=== PATIENT | female | born 1960 | race Caucasian/White ===

== ENCOUNTER 2016-06-08 21:32 | Outpatient (CLI) | payer MEDICAID | END 2016-06-08 21:33 | disposition home or self-care (01) | DX: G47.33 Obstructive sleep apnea (adult) (pediatric) (principal) ==

== ENCOUNTER 2016-07-02 09:10 | Outpatient (CLI) | payer MEDICAID | END 2016-07-02 09:11 | disposition home or self-care (01) | DX: G47.33 Obstructive sleep apnea (adult) (pediatric) (principal) ==

== ENCOUNTER 2016-07-12 09:53 | Outpatient (CLI) | payer MEDICAID | END 2016-07-12 09:54 | disposition home or self-care (01) | DX: E03.9 Hypothyroidism, unspecified (principal); E78.5 Hyperlipidemia, unspecified; I10 Essential (primary) hypertension ==

== ENCOUNTER 2016-08-08 11:00 | Outpatient (CLI) | payer MEDICAID | END 2016-08-08 11:30 | disposition home or self-care (01) | DX: R42 Dizziness and giddiness (principal); R07.89 Other chest pain ==

== ENCOUNTER 2016-08-12 10:36 | Outpatient (CLI) | payer MEDICAID | END 2016-08-12 10:37 | disposition home or self-care (01) | DX: R07.89 Other chest pain (principal); R91.8 Other nonspecific abnormal finding of lung field ==

== ENCOUNTER 2016-08-14 09:41 | Outpatient (CLI) | payer MEDICAID | END 2016-08-14 09:42 | disposition home or self-care (01) | DX: G47.33 Obstructive sleep apnea (adult) (pediatric) (principal) ==

== ENCOUNTER 2016-12-05 19:59 | Outpatient (CLI) | payer MEDICAID | END 2016-12-05 20:00 | disposition critical access hospital (66) | LOC: EMS 19:59 | PROVIDERS: ATTEND Surgery | DX: R07.9 Chest pain, unspecified (principal); R11.0 Nausea | CPT/HCPCS: A0425; A0427 ==

== ENCOUNTER 2016-12-05 20:20 | Emergency (ER) | payer MEDICAID ==
--- NOTE | 2016-12-05 20:45 | ED Physician Documentation ---
PD HPI CHEST PAIN - Stated complaint Stated Complaint: CP/NAUSEA - Chief complaint Chief Complaint: Cardiac - History obtained from History obtained from: Patient - History of Present Illness Timing - onset: Today Timing - onset during: Light activity Timing - details: Abrupt onset, Intermittant Pain level max: 3 Pain level now: 0 Quality: Pressure Location: Substernal, Left chest Radiation: No: Jaw, Neck, Back, Abdominal, Left upper extremity, Right upper extremity Associated symptoms: Nausea, Palpitations Similar symptoms before: Has not had sx before Recently seen: Not recently seen Review of Systems Constitutional: reports: Reviewed and negative Cardiac: reports: Chest pain / pressure, Palpitations. denies: Pedal edema Respiratory: reports: Reviewed and negative GI: reports: Nausea PD PAST MEDICAL HISTORY - Past Medical History Past Medical History: Yes Cardiovascular: Hypertension, High cholesterol, Other Respiratory: Sleep apnea Endocrine/Autoimmune: Other GI: Hepatitis Other Past Medical History: patient states "irregular heart beat" - Past Surgical History Past Surgical History: Yes - Present Medications Home Medications: Ambulatory Orders Medication Instructions Recorded Confirmed Levothyroxine Sodium [Levoxyl] 50 mcg PO DAILY 12/05/16 12/05/16 Lisinopril 10 mg PO DAILY 12/05/16 12/05/16 Pravastatin [Pravachol] 40 mg PO DAILY 12/05/16 12/05/16 Venlafaxine HCl [Effexor Xr] 150 mg PO DAILY 12/05/16 12/05/16 cloNIDine [Catapres] 0.1 mg PO BID 12/05/16 12/05/16 - Allergies Allergies/Adverse Reactions: Allergies Allergy/AdvReac Type Severity Reaction Status Date / Time No Known Drug Allergies Allergy Verified 12/05/16 20:26 - Social History Does the pt smoke?: No Smoking Status: Former smoker Does the pt drink ETOH?: No Does the pt have substance abuse?: No Substance Use and Type: Meth, Cocaine/Crack - Immunizations Immunizations are current?: Yes - POLST Patient has POLST: No PD ED PE NORMAL - Vitals Vital signs reviewed: Yes - General General: Alert and oriented X 3, No acute distress, Well developed/nourished - HEENT HEENT: Moist mucous membranes - Cardiac Cardiac: RRR, No murmur - Respiratory Respiratory: No respiratory distress, Clear bilaterally - Abdomen Abdomen: Soft, Non tender, Non distended - Derm Derm: Normal color, Warm and dry, No rash - Extremities Extremities: No edema Results - Vitals Vitals: Oxygen O2 Source Room air - EKG (time done) No standard instances Rate: Rate (enter#) (60) Rhythm: NSR [place]: Normal Intervals: Normal [place] QRS: Normal Ischemia: Normal ST segments - Labs Labs: Laboratory Tests 12/05/16 12/05/16 12/05/16 20:53 20:53 20:53 WBC 8.6 RBC 4.46 Hgb 14.2 Hct 40.0 MCV 89.8 MCH 31.7 H MCHC 35.3 RDW 13.2 Plt Count 266 MPV 7.4 L Neut # 4.1 Lymph # 3.6 H [place] # 0.6 Eos # 0.2 Baso # 0.0 Absolute Nucleated RBC 0.00 Nucleated RBCs 0.0 Sodium 137 Potassium 3.9 Chloride 103 Carbon Dioxide 24 Anion Gap 10.0 BUN 20 Creatinine 0.8 Estimated GFR (MDRD) 74 L Glucose 217 H Calcium 9.5 Troponin I < 0.04 - Rads (name of study) chest xray Radiology: Prelim report reviewed, See rad report PD MEDICAL DECISION MAKING - ED course Complexity details: reviewed results, re-evaluated patient, considered differential, d/w patient Departure - Departure Disposition: 01 Home, Self Care Clinical Impression: Chest pain, Hiatal hernia, Hyperglycemia, Hypertension Condition: Good Instructions: Hiatal Hernia, ED Chest Pain Atypical Unkn Cause, ED HTN Established, ED Hyperglycemia New Susp Diabetes Comments: Follow up with your primary care physician. Your blood sugar was high tonight, but this does not need immediate treatment ( at this time in the emergency department). You should discuss this with your doctor, as they might recommend starting medication to control your blood sugar long-term. Similarly, your blood pressure was high tonight but not to an extent that required treatment in the emergency department. You should also discuss this with your doctor; they will recheck your blood pressure, and they might alter your blood pressure medication(s). You should take an acid-blocking medication, as you have a hiatal hernia and your chest discomfort might be associated with (due to) this finding. A medication such as Prilosec or Nexium ( [id number]) can be taken once per day for two weeks as a trial to see if it helps with symptoms. Lastly, the chest discomfort is a concerning symptom. Although your tests tonight are reassuring, talk to your doctor about this symptoms; they might recommend further testing. Please return to the emergency department if you feel worse in any way. Discharge Date/Time: 12/05/16 23:37
[2016-12-05 20:59] LABS: BASOPHILS % (AUTO) 0.5 %; EOSINOPHILS # (AUTO) 0.2 10^3/uL (0.0-0.7); EOSINOPHILS % (AUTO) 1.9 %; HGB - HEMOGLOBIN 14.2 g/dL (12.0-16.0); LYMPHOCYTES # (AUTO) 3.6 10^3/uL (1.5-3.5); LYMPHOCYTES % (AUTO) 42.2 %; MEAN CORPUSCULAR HEMOGLOBIN 31.7 pg (27.0-31.0); MEAN CORPUSCULAR HGB CONC 35.3 g/dL (32.0-36.0); MEAN CORPUSCULAR VOLUME 89.8 fL (81.0-99.0); MEAN PLATELET VOLUME 7.4 fL (7.9-10.8); MONOCYTES # (AUTO) 0.6 10^3/uL (0.0-1.0); MONOCYTES % (AUTO) 7.5 %; NEUTROPHILS # (AUTO) 4.1 10^3/uL (1.5-6.6); NEUTROPHILS % (AUTO) 47.9 %; RED BLOOD COUNT 4.46 10^6/uL (4.20-5.40); RED CELL DISTRIBUTION WIDTH 13.2 % (12.0-15.0); UNCORRECTED WHITE BLOOD COUNT 8.6 x10^3/uL; WHITE BLOOD COUNT 8.6 x10^3/uL (4.8-10.8)
[2016-12-05 21:08] LABS: CALCIUM 9.5 mg/dL (8.5-10.3); CREATININE 0.8 mg/dL (0.4-1.0); POTASSIUM 3.9 mmol/L (3.5-5.0)
[2016-12-05] MEDS ORDERED: ACETAMINOPHEN 325 MG TABLET PO STA (21:35)
[2016-12-05] MEDS ORDERED: ACETAMINOPHEN 325 MG TABLET PO ONE (21:39)
--- NOTE | 2016-12-05 21:46 | XRAY Preliminary Report ---
Exam: XR Chest 2 View PA/LAT IMPRESSION: 1. No acute pulmonary process. 2. Small to moderate hiatal hernia. [facility] SITE ID: [id number]
--- NOTE | 2016-12-05 22:32 | XRAY Report ---
EXAM: CHEST RADIOGRAPHY EXAM DATE: 12/05/2016 09:38 PM. CLINICAL HISTORY: Chest pain. COMPARISON: 08/12/2016. TECHNIQUE: 2 views. FINDINGS: Lungs/Pleura: No focal opacities evident. No pleural effusion. No pneumothorax. Lungs are hyperinflat ed. Mediastinum: Heart and mediastinal contours are unremarkable. Other: Moderate hiatal hernia. Postoperative changes are noted in the lower lumbar spine. EKG leads o verlie the chest. IMPRESSION: 1. No acute pulmonary process. 2. Small to moderate hiatal hernia. [facility] Referring Provider Line: [phone] SITE ID: [id number]
[2016-12-05 23:25] VITALS: BP 182/72
== END 2016-12-05 23:37 | disposition home or self-care (01) ==
LOC: EDUNIT# → ED 20:20
DX: R07.9 Chest pain, unspecified (principal); K44.9 Diaphragmatic hernia without obstruction or gangrene; R73.9 Hyperglycemia, unspecified; I10 Essential (primary) hypertension; K75.9 Inflammatory liver disease, unspecified; Z87.891 Personal history of nicotine dependence
CPT/HCPCS: 36415; 71020; 80048; 84484; 85025; 93005; 99284; A9270

== ENCOUNTER 2017-02-24 09:34 | Outpatient (CLI) | payer MEDICAID ==
[2017-02-24 13:33] LABS: BILIRUBIN,DIRECT 0.1 mg/dL (0.1-0.5); BILIRUBIN,TOTAL 0.9 mg/dL (0.2-1.0); CHOL/HDL RATIO 5.5 (<4.4); CHOLESTEROL 226 mg/dL; HDL CHOLESTEROL 41 mg/dL; LDL/HDL RATIO 3.4 (<4.4); MAGNESIUM 2.1 mg/dL (1.7-2.8); TOTAL PROTEIN 7.7 g/dL (6.7-8.2); TRIGLYCERIDES 223 mg/dL; VLDL CHOLESTEROL 45 mg/dL
== END 2017-02-24 09:35 | disposition home or self-care (01) ==
LOC: LAB.N 09:34
PROVIDERS: ATTEND Internal Medicine Cardiovascular Disease
DX: R06.02 Shortness of breath (principal); I10 Essential (primary) hypertension; R00.2 Palpitations; R07.9 Chest pain, unspecified; E78.00 Pure hypercholesterolemia, unspecified; G47.33 Obstructive sleep apnea (adult) (pediatric); Z86.19 Personal history of other infectious and parasitic diseases; R00.1 Bradycardia, unspecified
CPT/HCPCS: 36415; 80061; 80076; 83735; 84443

== ENCOUNTER 2017-04-14 10:26 | Outpatient (CLI) | payer MEDICAID ==
[2017-04-14 13:20] LABS: HEMOGLOBIN A1C 0.61 g/dL
== END 2017-04-14 10:27 | disposition home or self-care (01) ==
LOC: LAB.N 10:26
PROVIDERS: ATTEND Nurse Practitioner Gerontology
DX: E11.9 Type 2 diabetes mellitus without complications (principal)
CPT/HCPCS: 36415; 83036

== ENCOUNTER 2017-06-25 11:30 | Outpatient (CLI) | payer MEDICAID | END 2017-06-25 11:45 | disposition home or self-care (01) | LOC: RT.N 11:30 | PROVIDERS: ATTEND Family Medicine | DX: J06.9 Acute upper respiratory infection, unspecified (principal); F41.9 Anxiety disorder, unspecified | CPT/HCPCS: 93005 ==

== ENCOUNTER → 2018-02-11 | Outpatient (CLI) | payer BC, MEDICAID | END | disposition short-term general hospital (02) | LOC: EMS 14:06 | PROVIDERS: ATTEND Surgery | DX: R10.30 Lower abdominal pain, unspecified (principal) | CPT/HCPCS: A0425; A0427 ==

== ENCOUNTER 2018-07-15 09:12 | Outpatient (CLI) | payer BC | END 2018-07-15 09:13 | disposition home or self-care (01) | LOC: SC 09:12 | PROVIDERS: ATTEND Nurse Practitioner Family | DX: G47.33 Obstructive sleep apnea (adult) (pediatric) (principal) | CPT/HCPCS: 99212; 99215 ==

== ENCOUNTER 2018-10-05 09:55 | Outpatient (CLI) | payer BC | END 2018-10-05 23:59 | disposition home or self-care (01) | LOC: LAB.WCP 09:55 | PROVIDERS: ATTEND Family Medicine | DX: N39.0 Urinary tract infection, site not specified (principal) | CPT/HCPCS: 87086 ==

== ENCOUNTER 2019-01-08 08:00 | Outpatient (CLI) | payer BC ==
[2019-01-08 12:03] LABS: BASOPHILS % (AUTO) 0.4 %; EOSINOPHILS # (AUTO) 0.2 10^3/uL (0.0-0.7); EOSINOPHILS % (AUTO) 3.3 %; HGB - HEMOGLOBIN 12.1 g/dL (12.0-16.0); LYMPHOCYTES % (AUTO) 43.7 %; MEAN CORPUSCULAR HEMOGLOBIN 29.5 pg (27.0-31.0); MEAN CORPUSCULAR VOLUME 92.2 fL (81.0-99.0); MONOCYTES # (AUTO) 0.5 10^3/uL (0.0-1.0); MONOCYTES % (AUTO) 7.7 %; NEUTROPHILS # (AUTO) 3.1 10^3/uL (1.5-6.6); NEUTROPHILS % (AUTO) 44.5 %; PLT - PLATELET COUNT 306 10^3/uL (130-450); RED CELL DISTRIBUTION WIDTH 13.7 % (12.0-15.0); WHITE BLOOD COUNT 6.9 x10^3/uL (4.8-10.8)
[2019-01-08 12:24] LABS: ALBUMIN 4.2 g/dL (3.2-5.5); ALBUMIN/GLOBULIN RATIO 1.2 (1.0-2.2); ALKALINE PHOSPHATASE 54 IU/L (42-121); ALT ALANINE AMINOTRANSFERASE 47 IU/L (10-60); AST ASPARTATE AMINOTRANSFERASE 56 IU/L (10-42); BILIRUBIN,TOTAL 0.7 mg/dL (0.2-1.0); BUN - BLOOD UREA NITROGEN 24 mg/dL (6-20); CALCIUM 9.5 mg/dL (8.5-10.3); CARBON DIOXIDE - CO2 19 mmol/L (21-32); CHLORIDE 107 mmol/L (101-111); CHOLESTEROL 220 mg/dL; CREATININE 0.7 mg/dL (0.4-1.0); GFR - MDRD 86 (>89); GLUCOSE 143 mg/dL (70-100); HDL CHOLESTEROL 44 mg/dL; LDL CHOLESTEROL,CALCULATED 136 mg/dL; LDL/HDL RATIO 3.1 (<4.4); SODIUM 138 mmol/L (135-145); TOTAL PROTEIN 7.6 g/dL (6.7-8.2); VLDL CHOLESTEROL 40 mg/dL
[2019-01-08 12:54] LABS: MICROALBUM/CREATININE RATIO,UR 8.1 ug/mg (<30.0); MICROALBUMIN,URINE 1.6 mg/dL (0-300.0)
[2019-01-08 13:25] LABS: HB2 TOTAL 13.1 g/dL; HEMOGLOBIN A1C 0.67 g/dL; HEMOGLOBIN A1C % 6.8 % (4.6-6.2)
== END 2019-01-08 23:59 | disposition home or self-care (01) ==
LOC: LAB.WCP 08:00
PROVIDERS: ATTEND Family Medicine
DX: I10 Essential (primary) hypertension (principal); E78.5 Hyperlipidemia, unspecified; E11.9 Type 2 diabetes mellitus without complications; E03.9 Hypothyroidism, unspecified
CPT/HCPCS: 36415; 80053; 80061; 82043; 82570; 83036; 83721; 84443; 85025

== ENCOUNTER 2019-11-23 11:58 | Outpatient (CLI) | payer BC ==
[2019-11-23 18:19] LABS: BASOPHILS % (AUTO) 0.5 %; EOSINOPHILS # (AUTO) 0.2 10^3/uL (0.0-0.7); EOSINOPHILS % (AUTO) 2.4 %; HGB - HEMOGLOBIN 13.7 g/dL (12.0-16.0); LYMPHOCYTES # (AUTO) 2.8 10^3/uL (1.5-3.5); LYMPHOCYTES % (AUTO) 44.7 %; MEAN CORPUSCULAR HEMOGLOBIN 30.7 pg (27.0-31.0); MEAN CORPUSCULAR HGB CONC 32.8 g/dL (32.0-36.0); MEAN CORPUSCULAR VOLUME 93.7 fL (81.0-99.0); MEAN PLATELET VOLUME 9.9 fL (7.9-10.8); MONOCYTES # (AUTO) 0.6 10^3/uL (0.0-1.0); MONOCYTES % (AUTO) 9.3 %; NEUTROPHILS # (AUTO) 2.7 10^3/uL (1.5-6.6); NEUTROPHILS % (AUTO) 42.9 %; PLT - PLATELET COUNT 354 10^3/uL (130-450); RED BLOOD COUNT 4.46 10^6/uL (4.20-5.40); RED CELL DISTRIBUTION WIDTH 13.2 % (12.0-15.0); WHITE BLOOD COUNT 6.2 x10^3/uL (4.8-10.8)
[2019-11-23 18:30] LABS: RHEUMATOID FACTOR NEGATIVE (Negative)
[2019-11-23 18:58] LABS: HB2 TOTAL 14.2 g/dL; HEMOGLOBIN A1C 0.62 g/dL; HEMOGLOBIN A1C % 6.1 % (4.6-6.2)
[2019-11-23 20:02] LABS: ALBUMIN 4.7 g/dL (3.2-5.5); ALBUMIN/GLOBULIN RATIO 1.3 (1.0-2.2); ALKALINE PHOSPHATASE 64 IU/L (42-121); ALT ALANINE AMINOTRANSFERASE 17 IU/L (10-60); AST ASPARTATE AMINOTRANSFERASE 23 IU/L (10-42); BILIRUBIN,TOTAL 0.8 mg/dL (0.2-1.0); BUN - BLOOD UREA NITROGEN 27 mg/dL (6-20); CALCIUM 10.5 mg/dL (8.5-10.3); CARBON DIOXIDE - CO2 23 mmol/L (21-32); CHLORIDE 103 mmol/L (101-111); CHOL/HDL RATIO 4.1 (<4.4); CHOLESTEROL 228 mg/dL; CREATININE 0.8 mg/dL (0.4-1.0); GLUCOSE 90 mg/dL (70-100); HDL CHOLESTEROL 55 mg/dL; LDL CHOLESTEROL,CALCULATED 93 mg/dL; LDL/HDL RATIO 1.7 (<4.4); SODIUM 139 mmol/L (135-145); TOTAL PROTEIN 8.2 g/dL (6.7-8.2); URIC ACID 5.2 mg/dL (2.6-7.2); VLDL CHOLESTEROL 80 mg/dL
[2019-11-23 20:03] LABS: CRP - C-REACTIVE PROTEIN 0.5 mg/dL (0-1.0)
[2019-11-26 18:39] LABS: CYCLIC CITRULL PEPTIDE CCP IGG <16 UNITS
== END 2019-11-23 23:59 | disposition home or self-care (01) ==
LOC: LAB.WCP 11:58
PROVIDERS: ATTEND Family Medicine
DX: E11.9 Type 2 diabetes mellitus without complications (principal); E78.1 Pure hyperglyceridemia; M25.50 Pain in unspecified joint; Z87.19 Personal history of other diseases of the digestive system
CPT/HCPCS: 36415; 80053; 80061; 83036; 83721; 84443; 84550; 85025; 85651; 86140; 86200; 86430; 87522

== ENCOUNTER 2019-11-23 12:47 | Outpatient (CLI) | payer BC ==
--- NOTE | 2019-11-23 14:47 | XRAY Report ---
PROCEDURE: Hand 3 View BILAT INDICATIONS: BILAT HAND PAIN, LT KNEE PAIN TECHNIQUE: 3 views of the hand(s) acquired. COMPARISON: None FINDINGS: Bones: Joint space narrowing in the first and second carpometacarpal joints with marginal osteophyto sis. There is also joint space narrowing with tiny osteophytes in the triscaphe joint. There appears to be negative ulnar variance bilaterally. No fracture, dislocation, or suspicious lytic/blastic osse ous lesion. IMPRESSION: Findings of osteoarthritis in the first and second carpometacarpal joints and triscaphe joints bilate rally. Negative ulnar variance bilaterally. Reviewed by: Alcides Ratliff MD on 11/23/2019 2:46 PM PDT Approved by: Alcides Ratliff MD on 11/23/2019 2:46 PM PDT Station ID: [id number]
--- NOTE | 2019-11-23 14:48 | XRAY Report ---
PROCEDURE: Knee 2 View LT INDICATIONS: BILAT HAND PAIN, LEFT KNEE PAIN TECHNIQUE: 2 views of the left knee(s) were acquired. COMPARISON: None. FINDINGS: Bones: Mild-moderate tricompartmental osteoarthritic changes, worst in the medial femorotibial compar tment, characterized by joint space narrowing and marginal osteophytosis. No fractures or dislocation s. No suspicious bony lesions. Soft tissues: No joint effusion. No suspicious soft tissue calcifications. IMPRESSION: Mild/moderate tricompartmental osteoarthritis. Reviewed by: Alcides Ratliff MD on 11/23/2019 2:47 PM PDT Approved by: Alcides Ratliff MD on 11/23/2019 2:47 PM PDT Station ID: [id number]
== END 2019-11-23 12:48 | disposition home or self-care (01) ==
LOC: DI 12:47
PROVIDERS: ATTEND Family Medicine
DX: M17.12 Unilateral primary osteoarthritis, left knee (principal); M19.042 Primary osteoarthritis, left hand; M19.041 Primary osteoarthritis, right hand